=== PATIENT | female | born 1960 | race Caucasian/White ===

== ENCOUNTER → 2020-09-13 | Outpatient (CLI) | payer BC ==
[~2020-09-13] MED LIST: BIOTIN PO; HYDROCODON-ACE1 EAC4 PO; LISINOPRIL10 MG PO; LOW DOSE ASPIRI81 MG PO; RED YEAST RICE600 M1 PO; VITAMIN A & D; VITAMIN D3 PO
== END ==
LOC: EXRD 07:38
DX: R94.5 Abnormal results of liver function studies (principal)
CPT/HCPCS: 76705

== ENCOUNTER → 2020-09-24 | Day surgery (SDC) | payer BC | END | disposition home or self-care (01) | LOC: OR 07:15 | DX: Z12.11 Encounter for screening for malignant neoplasm of colon (principal); D12.3 Benign neoplasm of transverse colon; K64.0 First degree hemorrhoids; K64.4 Residual hemorrhoidal skin tags; I10 Essential (primary) hypertension; R94.5 Abnormal results of liver function studies; Z86.010 Personal history of colon polyps; Z79.82 Long term (current) use of aspirin; Z79.899 Other long term (current) drug therapy | CPT/HCPCS: J2704; J7040 ==

== ENCOUNTER → 2020-10-15 | Outpatient (CLI) | payer BC | LOC: MRI 10:29 → NM 13:00 | DX: K83.8 Other specified diseases of biliary tract (principal); R11.0 Nausea; Z86.010 Personal history of colon polyps; R93.2 Abnormal findings on diagnostic imaging of liver and biliary tract | CPT/HCPCS: 74181; 78227; A9537; J2805 ==

== ENCOUNTER → 2020-11-12 | Outpatient (CLI) | payer BC ==
[2020-11-12 10:54] LABS: BUN/CREATININE RATIO 23 (0-10)
== END ==
LOC: OPSV2 09:42
PROVIDERS: Anesthesiology
DX: Z01.818 Encounter for other preprocedural examination (principal)
CPT/HCPCS: 36415; 80048; 93005

== ENCOUNTER → 2020-11-14 | Day surgery (SDC) | payer BC | END | disposition home or self-care (01) | LOC: OR 06:37 | PROVIDERS: Surgery | PROC: 0FT44ZZ Resection of Gallbladder, Percutaneous Endoscopic Approach (ICD-10-PCS; principal; 2020-11-14 08:40) | DX: K81.1 Chronic cholecystitis (principal); K66.0 Peritoneal adhesions (postprocedural) (postinfection); E78.5 Hyperlipidemia, unspecified; I10 Essential (primary) hypertension; I49.3 Ventricular premature depolarization; Z88.0 Allergy status to penicillin; Z79.82 Long term (current) use of aspirin; Z79.899 Other long term (current) drug therapy | CPT/HCPCS: J0690; J1100; J1885; J2001; J2250; J2405; J2704; J2710; J3010; J7030; J7120 ==